=== PATIENT | female | born 1930 | race African-American/Black ===

== ENCOUNTER 2017-03-03 05:51 | Inpatient (IN) | payer MEDICARE, MEDICAID ==
[2017-03-03 07:45] LABS: Troponin I 0.096 ng/mL (< 0.028)
[2017-03-03 08:41] VITALS: BMI 24.1
[2017-03-03] MEDS ORDERED: Nitroglycerin 0.4 MG TAB (25 Tab Bottle) PO PRN (08:54)
[2017-03-03] MEDS ORDERED: Carvedilol 6.25 MG TAB PO SCH ×2 (09:00→21:00)
[2017-03-03] MEDS ORDERED: Nitroglycerin 2% Ointment 1 INCH/1 GM Packet ONE (09:03)
[2017-03-03] MEDS ORDERED: Clopidogrel Bisulfate 300 MG TAB PO SCH (09:15)
[2017-03-03 10:00] LABS: Troponin I 0.091 ng/mL (< 0.028)
[2017-03-03] MEDS ORDERED: Aspirin 81 mg Enteric Coated Tablet PO SCH (13:00)
--- NOTE | 2017-03-03 13:36 | CON ---
DATE OF CONSULTATION: 03/03/2017 REASON FOR CONSULTATION: Stage 6 chronic kidney disease for maintenance hemodialysis. HISTORY OF PRESENT ILLNESS: This is a very pleasant 86-year-old female who was admitted for chest p ain. The patient at this time denies any chest pain, orthopnea or PND. The patient has had some we ight gain and has inoperable coronary artery disease. PAST MEDICAL HISTORY: Diabetes mellitus, congestive heart failure, end-stage renal disease, Thursday , , Thursday; anemia, hyperlipidemia, secondary hyperparathyroidism, AV fistula, coronary ar jesusita disease, diastolic heart failure. SOCIAL ECONOMIC HISTORY: No alcohol or drug use. FAMILY HISTORY: Negative for ESRD. ALLERGIES: Reviewed. REVIEW OF SYSTEMS: A 15-point review of systems was performed and negative except positives noted a hitesh. GENERAL: Weakness- HEAD: Headache- NECK: No swelling or lumps. NOSE: No epistaxis or discharge. EYES: No diplopia or pain. RESPIRATORY: Dyspnea- CARDIOVASCULAR: Chest pain- GASTROINTESTINAL: Nausea- /AN/SYQ 13 NAV/C2 OPERATOR: Hematuria- MUSCULOSKELETAL: No joint pain. NEUROPSYCHIATIC SYSTEMS: No suicidal ideation. No ideation. SKIN: Denies any rash or ulcer. CONSTITUTIONAL: No fever or chills. PHYSICAL EXAMINATION: GENERAL: Patient is awake, alert. VITAL SIGNS: Afebrile, pulse 78, breathing at 16, blood pressure 106/52. GENERAL APPEARANCE AND MENTAL STATUS: Fair. HEAD/NECK: Normocephalic, atraumatic. EYES: EOMI. No deformity. EARS: Clear. No ulcers. NOSE: Intact. No lesions. MOUTH: Clear. No discharge. THROAT: Clear. No exudate. LUNGS: Clear. No crackles. CARDIAC: S1, S2. No rub. ABDOMEN: Benign. BS+. GENITALIA/RECTUM: Villalta absent. BACK/EXTREMITIES: Edema 0+ Ulcer- NEUROLOGICAL: Alert and motor intact. SKIN: Rash- Bruise- LYMPHATICS: Edema- Ulcer- LABORATORY DATA: None today. ASSESSMENT AND RECOMMENDATIONS: 1. Stage 6 chronic kidney disease. We will plan dialysis. 2. Hypertension, stable. 3. Anemia. We will check hemoglobin. 4. Medications based on GFR are appropriate.
[2017-03-03] MEDS ORDERED: Dextrose 50% Abboject 50 ML SYRINGE SLOW IVP PRN (13:51)
[2017-03-03] MEDS ORDERED: Dextrose 5% in Water 1,000 ML IV PRN (13:51)
[2017-03-03] MEDS ORDERED: HumaLOG 300 UNITS/3 ML VIAL SC SCH (17:00)
[2017-03-03] MEDS: HumaLOG 300 UNITS/3 ML VIAL SC SCH (18:40)
[2017-03-03] MEDS ORDERED: Nitroglycerin 2% Ointment 1 INCH/1 GM Packet TOP PRN (19:42)
[2017-03-03] MEDS ORDERED: Sodium Chloride 0.9% 250 ML 250 ML IV SCH (19:45)
[2017-03-03 19:54] LABS: #Eosinphils 0.1 thou/uL (0.0-0.7); #Lymphocytes 1.1 thou/uL (1.20-3.40); #Monocytes 0.8 thou/uL (0.11-0.59); #Neutrophils 6.7 thou/uL (1.40-6.50); %Basophils 0.1 % (0.0-1.0); %Eosinophils 0.6 % (0.0-10.0); %Lymphocytes 12.7 % (21.0-51.0); %Monocytes 9.3 % (0.0-10.0); Hematocrit 31.4 % (36.0-47.0); Mean Platelet Volume 8.7 fL (7.4-10.4); Red Blood Cell (RBC) Count 3.47 mill/uL (4.20-5.40); White Blood Cell (WBC) Count 8.7 thou/uL (4.8-10.8)
[2017-03-03 20:23] LABS: Anion Gap 17 mmol/L (10-20); BUN (Urea Nitrogen) 34 mg/dL (9.8-20.1); Calc. Creatinine Clearance 6 mL/min (70-130); Calcium 9.1 mg/dL (7.8-10.44); Carbon Dioxide 26 mmol/L (23-31); Chloride 99 mmol/L (98-107); Estimated GFR-MDRD 8
[2017-03-03] MEDS ORDERED: Potassium Chloride 20 MEQ TAB PO SCH (20:45)
[2017-03-03 20:55] LABS: Troponin I 0.409 ng/mL (< 0.028)
[2017-03-03] MEDS ORDERED: Carvedilol 3.125 MG TAB PO SCH (21:00)
[2017-03-03] MEDS ORDERED: Furosemide 20 MG/2 ML VIAL SLOW IVP SCH (21:15)
[2017-03-03] MEDS ORDERED: Heparin 25,000 units/D5W 500 ML IVPB SCH (21:15)
[2017-03-03] MEDS ORDERED: Heparin 10,000 UNITS/ 10 ML VIAL SLOW IVP SCH (21:15)
--- NOTE | 2017-03-03 21:15 | RAD ---
PORTABLE AP CHEST X-RAY 03/03/17 HISTORY: Vomiting. Possible aspiration. COMPARISON: 12/09/16 FINDINGS: The cardiac silhouette is magnified by projection but does appear mildly enlarged. There are increas ed interstitial densities throughout the lungs, greater at each lung base with parenchymal density p resent in the retrocardiac region left lung base. There are also suggestion of small bilateral pleur al effusions. Pulmonary vasculature is within normal limits. Vascular calcification seen in the thor acic aorta. There is osteopenia with degenerative change in the spine. . IMPRESSION: 1. Bilateral increased interstitial opacities which could be related to pneumonia. There is gre ater patchy and interstitial densities at the left lung bas. Which could be related to focal area of pneumonia or aspiration pneumonitis. 2. Small bilateral pleural effusions. 3. Mild cardiomegaly. 4. Followup to complete resolution is recommended. POS: POLO
--- NOTE | 2017-03-03 21:16 | HP-2 ---
CODE STATUS: DNR. PRIMARY CARE PHYSICIAN: Dr. Boothe in [place]. ATTENDING: Cindi Whitmore M.D. HISTORIAN: Patient and daughter. SPECIALISTS: Dr. Diaz of Cardiology and Dr. Méndez of Nephrology. CHIEF COMPLAINT: Chest pain. HISTORY OF PRESENT ILLNESS: The patient is an 86-year-old -[place] female with end-stage renal disease, severe coronary artery disease, diastolic CHF, presenting with chest pain to the [place] ED. The patient was found to have a troponin of 0.08 and transferred here for further care. The patient reports that earlier this morning she was lying in bed and was experiencing a squeezing-type chest pain and attempted to use nitro x2 with chest pain persisting. She reports that she uses nitro paste about once a week. Reports no inciting incident or missed medications doses. The patient did have catheterization in 12/2016 showing severe three-vessel disease. At that time, surgery was not recommended as patient was poor surgical candidate and recommended for medical management. ER COURSE: The patient received nitro paste, which resolved chest pain. PAST MEDICAL HISTORY: 1. CHF 2. CAD. 3. End-stage renal disease on hemodialysis Thursday, , and Thursday. 4. Type 2 diabetes on insulin. 5. Anemia of chronic disease. 6. Hypertension. 7. Hyperlipidemia. 8. Secondary hyperparathyroidism. PAST SURGICAL HISTORY: 1. AV fistula in the right forearm. 2. Colonoscopy 2013. ALLERGIES: SULFA AND GLYBURIDE. MEDICATIONS: 1. Lovastatin 40 mg p.o. at bedtime. 2. Ezetimibe 10 mg p.o. daily. 3. Insulin Lispro 6 units subcutaneous b.i.d. with meals. 4. Folic acid, vitamin B complex, x1 tablet oral daily. 5. Calcium carbonate 750 mg p.o. at bedtime. 6. Calcium acetate 667 mg p.o. t.i.d. with meals. 7. Insulin lispro 5 units subcutaneous at bedtime. 8. Aspirin 81 mg p.o. daily. 9. Carvedilol 12.5 mg p.o. b.i.d. 10. Nitroglycerin 0.4 mg sublingual every 5 minutes p.r.n. 11. Hydralazine HCL 50 mg p.o. t.i.d. 12. Amlodipine 10 mg b.i.d. 13. Hydralazine 50 mg p.o. t.i.d. FAMILY HISTORY: Hypertension, hyperlipidemia, diabetes, CHF, end-stage renal disease. SOCIAL HISTORY: The patient is a former smoker, quit at least 10 years ago. Denies alcohol or drug use. Lives with her daughters. REVIEW OF SYSTEMS: General: Denies fevers, endorses fatigue. Eyes: Denies vision changes. Respiratory: Denies cough or congestion. Cardiovascular: Endorses chest pain. Denies edema. Gastrointestinal: Denies nausea, vomiting, or constipation. Musculoskeletal: Denies pain or tenderness. Neuro: Endorses weakness. Denies seizure. PHYSICAL EXAMINATION: VITAL SIGNS: 100/56, pulse 71, respiratory rate 16, T-max 98.6, pulse oximetry 91% on room air, current weight 54 kilograms. GENERAL: Alert and oriented x3, in no acute distress. EYES; however, she does appear acutely ill and somewhat lethargic. EYES: PERRLA, EOMI. NECK: Supple, with no lymphadenopathy. CARDIOVASCULAR: Regular rate and rhythm with no murmurs. Radial and pedal pulses symmetric bilaterally. RESPIRATORY: Normal effort, clear to auscultation bilaterally. ABDOMEN: Soft and nontender to palpation. EXTREMITIES: No cyanosis or edema. MUSCULOSKELETAL: Structure and tone within normal limits. NEUROLOGIC: No focal deficits. Sensation within normal limits. LABORATORY DATA: WBC 8.55, H/H 8.4/21.5, platelets 132,000. Sodium 141, potassium 3.6, chloride 103, bicarbonate 20, BUN 71, creatinine 9.6, glucose 162 , calcium 8.8. Total protein 7, albumin 3.6, total bilirubin 0.4, AST 36, ALT 27. PT 14.4, PTT 32, INR 1.1. Troponin 0.087, BNP 2855. EKG: Incomplete left bundle branch block with ST depressions indicating possible inferolateral ischemia and QTC of 501. ASSESSMENT AND PLAN: This is an 86-year-old female presenting with: 1. Owm-EM-wbbewjh elevation myocardial infarction with history of severe unstable angina, continue to trend cardiac enzymes and repeat EKG. Dr. Diaz consulted from the ER and has seen the patient. We will await his recommendations. The patient is currently on beta-maria r, calcium channel maria r, hydralazine, lovastatin, Zetia, aspirin, possibly consider replacing the patient's p.r.n. nitro with long-acting nitro, admit to telemetry for monitoring. The patient was started on Plavix and aspirin. 2. End-stage renal disease on hemodialysis. Dr. Méndez to be consulted with possible dialysis today, as today is one of her scheduled days. 3. Preserved ejection fraction heart failure. Last echo was in 2015 with an ejection fraction of 60-65%. Elevated BNP here stable with previous hospital visit in December and is likely due to heart failure and end-stage renal disease. No evidence of volume overload seen at this time. 4. Type 2 diabetes on insulin. We will continue with home dosing of Humalog and do Accu-Cheks with mild sliding scale. 5. Hypertension. Continue home medications. She did have low blood pressures due to nitro paste; then we will continue to monitor. 6. Hyperlipidemia. Continue home medications. 7. Prophylaxis. Therapeutic Lovenox, Plavix and aspirin. DISPOSITION AND LENGTH OF HOSPITAL STAY: Inpatient telemetry. Symptomatic medications will be provided. History and physical exam as well as management discussed with Dr. Whitmore. FRANKIE
[2017-03-03 21:45] LABS: Hematocrit 29.1 % (36.0-47.0)
[2017-03-03] MEDS ORDERED: Sterile Water 10 ML ONE (21:55)
[2017-03-04 00:11] LABS: Troponin I 0.596 ng/mL (< 0.028)
[2017-03-04] MEDS ORDERED: Vancomycin HCl 500 MG in Sodium Chloride 0.9% 100 ML IVPB SCH (01:15)
[2017-03-04] MEDS ORDERED: Vancomycin HCl 750 MG in Sodium Chloride 0.9% 250 ML 250 ML IVPB SCH (01:15)
[2017-03-04] MEDS ORDERED: HOLD VANCOMYCIN FOR LEVEL >20 FS SCH (01:15)
[2017-03-04] MEDS ORDERED: Vancomycin HCl 1.25 GM in Sodium Chloride 0.9% 250 ML 250 ML IVPB SCH (01:15)
[2017-03-04] MEDS ORDERED: Vancomycin HCl 1 GM in Premix Bag 1 BAG IVPB SCH ×2 (01:15→01:30)
[2017-03-04] MEDS ORDERED: Ondansetron HCl/PF 8 MG in Sodium Chloride 0.9% 50 ML IVPB SCH (01:45)
[2017-03-04] MEDS ORDERED: Ondansetron HCl/PF 4 MG/2 ML Vial IVP SCH (01:46)
[2017-03-04] MEDS: Piperacillin/Tazobactam 2.25 GM in Sodium Chloride 0.9% 100 ML IVPB SCH ×2 (02:00→15:53)
[2017-03-04 02:55] LABS: Hematocrit 30.6 % (36.0-47.0); Mean Platelet Volume 8.7 fL (7.4-10.4); Red Blood Cell (RBC) Count 3.38 mill/uL (4.20-5.40)
[2017-03-04 03:16] LABS: Anion Gap 22 mmol/L (10-20); BUN (Urea Nitrogen) 41 mg/dL (9.8-20.1); Calc. Creatinine Clearance 5 mL/min (70-130); Calcium 8.8 mg/dL (7.8-10.44); Carbon Dioxide 20 mmol/L (23-31); Chloride 100 mmol/L (98-107); Estimated GFR-MDRD 7
[2017-03-04 03:27] LABS: Troponin I 0.702 ng/mL (< 0.028)
[2017-03-04 06:36] LABS: Troponin I 0.796 ng/mL (< 0.028)
[2017-03-04] MEDS ORDERED: Clopidogrel Bisulfate 75 MG TAB PO SCH (09:00)
[2017-03-04] MEDS ORDERED: Aspirin 81 mg Enteric Coated Tablet PO SCH (09:00)
--- NOTE | 2017-03-04 09:26 | PDOC.FM ---
- Subjective Subjective: Patient had eventful night, began around midnight with hypotensive episode, was given 250ml NS. Was taken off nitro paste. CP/SOB and N/V when she got up to go to bathroom. Was given morphine 2mg. Patient had choking episode witnessed by nurse. Concerns for aspiration PNA so CXR was ordered and CE w/ EKG were done. Trops elevated, EKG was stable from admission/December. Patient also desated so was started on ventimask with improvement. This morning, patient is not experiencing any CP/ SOB, or other symptoms. Breathing on non-rebreather at 15L at 40%. O2% in the low 90%, however when she sits up or speaks, she drops into the low 80s. - Objective MAR Reviewed: Yes Vital Signs & Weight: Vital Signs (12 hours) Temp Pulse Resp BP Pulse Ox 03/04/17 07:20 98.7 F 84 16 103/53 L 100 03/04/17 06:47 81 20 81 L 03/04/17 04:00 98.6 F 73 18 90/46 L 94 L 03/04/17 02:06 72 20 96 03/04/17 02:04 98.3 F 74 30 H 92/49 L 96 03/04/17 00:25 78 18 100/52 L 94 L 03/04/17 00:18 80 24 H 110/56 L 89 L 03/03/17 22:48 94 L 03/03/17 22:28 77 22 H 94 L 03/03/17 22:15 75 20 102/57 L 95 I&O: 03/03/17 03/04/17 03/05/17 06:59 06:59 06:59 Output Total 1000 Balance -1000 Result Diagrams: 03/04/17 02:34 03/04/17 02:34 <Chao Abraham - Last Filed: 03/04/17 11:03> - Objective Vital Signs & Weight: Vital Signs (12 hours) Temp Pulse Pulse Resp BP BP Pulse Ox 03/04/17 10:14 82 20 87 L 03/04/17 07:50 82 95/52 L 03/04/17 07:20 98.7 F 84 16 103/53 L 100 03/04/17 06:47 81 20 81 L 03/04/17 04:00 98.6 F 73 18 90/46 L 94 L 03/04/17 02:06 72 20 96 03/04/17 02:04 98.3 F 74 30 H 92/49 L 96 Pulse Ox Pulse Ox Pulse Ox 03/04/17 10:14 03/04/17 07:50 100 65 L 97 03/04/17 07:20 03/04/17 06:47 03/04/17 04:00 03/04/17 02:06 03/04/17 02:04 I&O: 03/03/17 03/04/17 03/05/17 06:59 06:59 06:59 Output Total 1000 Balance -1000 Result Diagrams: 03/04/17 02:34 03/04/17 02:34 <Cindi Whitmore - Last Filed: 03/04/17 12:44> Phys Exam - Physical Examination Constitutional: NAD HEENT: moist MMs, oral pharynx no lesions rales in RLL Cardiovascular: RRR, no significant murmur Gastrointestinal: soft, non-tender Musculoskeletal: no edema, pulses present Neurological: normal sensation, moves all 4 limbs Psychiatric: normal affect, A&O x 3 <Chao Abraham - Last Filed: 03/04/17 11:03> Dx/Plan (1) NSTEMI (non-ST elevated myocardial infarction) Code(s): I21.4 - NON-ST ELEVATION (NSTEMI) MYOCARDIAL INFARCTION Status: Acute Plan: Dr. Diaz recsherly greatly appreciated. Troponin continues to increase, CK not elevated overnight. Patient asymptomatic overnight. Did not tolerate morphine well overnight as it made her altered. Patient on plavix and aspirin, but not a surgical candidate. Possibly due to fluid overload, however patient had dialysis yesterday and does not appear to be fluid overloaded. Will continue to monitor. (2) Pneumonia, aspiration Code(s): J69.0 - PNEUMONITIS DUE TO INHALATION OF FOOD AND VOMIT Status: Suspected Plan: will continue on zosyn, hold vancomycin at this time. In the room right now, O2 sats are in the 60s by the ear, but finger level is 89%. Will increase FiO2 to 50% per RT. Asymptomatic at this time on ventimask. (3) Diabetes mellitus type 2 with complications Code(s): E11.8 - TYPE 2 DIABETES MELLITUS WITH UNSPECIFIED COMPLICATIONS Status: Acute Plan: home insulin and mild SSI (4) Diastolic CHF Code(s): I50.30 - UNSPECIFIED DIASTOLIC (CONGESTIVE) HEART FAILURE Status: Acute (5) Elevated troponin Code(s): R74.8 - ABNORMAL LEVELS OF OTHER SERUM ENZYMES Status: Acute (6) End stage renal disease on dialysis Code(s): N18.6 - END STAGE RENAL DISEASE; Z99.2 - DEPENDENCE ON RENAL DIALYSIS Status: Acute Plan: Dialysis yesterday with mild hypotension. Will discuss with Dr. Méndez if there is any further intervention. (7) Hypertension Code(s): I10 - ESSENTIAL (PRIMARY) HYPERTENSION Status: Acute <Chao Abraham - Last Filed: 03/04/17 11:03> Attending Addendum - Attending Addendum I personally evaluated the patient and discussed the management with Dr. Abraham I agree with the History, Examination, Assessment and Plan documented above with any addition or exceptions noted below. 86 yo female admitted for ASC HD#1 Afebrile. Hypoxic requiring 50% venti mask. Borderline BP. Denies symptoms currently. Reports no CP or SOB. Briefly discussed prognosis. A/P: Severe 3V dz with progressive ACS: On max therapy. Antianginals relieving pain. Not able to tolerate nitro nor morphine due to BP. Currently on DAPT and Heparin drip. Not a surgical candidate. Prognosis briefly discussed with family. Will follow up with Dr. Castaneda on plan/course of action. Possible hospice evaluation. ESRD: Now with HF and ACS patient not doing well. Will discuss with renal if need for possible repeat HD today if status progresses. Currently on 50% venti mask. Hypoxic respiratory distress: Currently on 50% venti mask. Discussed possible need to transition to positive pressure if patient continues to remain hypoxic. No intubation. Considering hospice. pEFHF: Diastolic dysfunction and now with ASC likely has global hypokinesis. Needs ionotrophic support. Not able to tolerate medications at this time due to BP. Considering hospice. DM: SSI added today. Will stop if decides on hospice. Aspiration PNA: Change antibiotics. Discuss stopping if patient decides on hospice. Awaiting patient's decision on hospice. Corinne <Cindi Whitmore - Last Filed: 03/04/17 12:44>
--- NOTE | 2017-03-04 09:33 | RAD ---
SINGLE VIEW OF THE CHEST: Comparison: 03-03-17 History: Hypoxia. FINDINGS: Single view of the chest shows an enlarged but stable cardiomediastinal silhouette with atherosclero tic calcifications in the aorta. There appear to be small bilateral pleural effusions. Increased int erstitial markings are present. IMPRESSION: Small bilateral pleural effusions. POS: H
[2017-03-04 09:36] LABS: Troponin I 0.801 ng/mL (< 0.028)
[2017-03-04] MEDS: Nitroglycerin 2% Ointment 1 INCH/1 GM Packet TOP SCH ×2 (10:15→20:34)
[2017-03-04] MEDS: HumaLOG 300 UNITS/3 ML VIAL SC SCH ×3 (10:17→16:53)
--- NOTE | 2017-03-04 12:15 | PRG ---
DATE OF SERVICE: 03/04/2017 SUBJECTIVE: This is an 86-year-old female being seen for end-stage renal disease. Overnight, the p atient had a myocardial infarction and hypotension and hypoxia. PHYSICAL EXAMINATION: GENERAL: Patient is resting. VITAL SIGNS: Afebrile, pulse 80, breathing at 16, blood pressure 95/52, in mild to moderate distres s. OBJECTIVE: See above. Awake, alert, in no acute distress. GENERAL APPEARANCE AND MENTAL STATUS: Fair. HEAD/NECK: Normocephalic. Atraumatic. EYES: EOMI. No deformity. EARS: Clear. No ulcers. NOSE: Intact. No lesions. MOUTH: Clear. No discharge. THROAT: Clear. No exudate. LUNGS: Clear. No crackles. CARDIAC: S1, S2. No rub. ABDOMEN: Benign. BS+. GENITALIA/RECTUM: Villalta absent. BACK/EXTREMITIES: Edema 0+ Ulcer- NEUROLOGICAL: Alert and motor intact. SKIN: Rash- Bruise- LYMPHATICS: Edema- Ulcer- LABORATORY: Hemoglobin 9.7. ASSESSMENT AND RECOMMENDATIONS: 1. Stage 6 chronic kidney disease. Risks versus benefits of dialysis were discussed. The family w ants the patient to be on hospice and wants to withdraw dialysis. 2. Anemia, stable. 3. Hypertension, stable. 4. Coronary disease. 5. Congestive heart failure. I will sign off on this patient.
[2017-03-04 15:20] VITALS: TEMP 100.1
--- NOTE | 2017-03-04 17:23 | PDOC.EVN ---
Event Note - Event Note Event Note: I discussed patient's declining status with HUGH Cano and she stated that she wants to honor patient's DNR status, however if patient continues to have decline in respiratory status, they would like BiPAP to be used instead of comfort care. I explained the process of transferring to the ICU and likely sedation as the BiPAP is uncomfortable and many patient's fight the mask. She verbalized she understood and expressed appreciation. Will await for Home Hospice evaluation at 08:30 tomorrow morning.
[2017-03-05] MEDS ORDERED: Morphine Sulfate 2 MG/ML SYRINGE SLOW IVP PRN (00:28)
[2017-03-05] MEDS ORDERED: Scopolamine 1.5 mg/72 hour Patch TD PRN (00:29)
--- NOTE | 2017-03-05 00:39 | PDOC.EVN ---
Event Note - Event Note Event Note: Was called to patients bedside at ~0000 on 03/05/17 to evaluate hypotension and hypoxia. Pts systolic pressure was in the 60s and O2 sat was in the high 80s despite 5L of O2 via NC. At this point treatment goals and options were discussed with the family. It was decided by her POA that we should only provide comfort measures rather than more aggressive treatment. Will dc all orders other than comfort measures. Will add morphine PRN for air hunger and scopolamine for secretions.
[2017-03-05] MEDS ORDERED: Ondansetron HCl/PF 4 MG/2 ML Vial SLOW IVP PRN (02:14)
[2017-03-05 04:07] VITALS: BP 90/50
[2017-03-05] MEDS ORDERED: Lorazepam 2 MG/ML VIAL SLOW IVP PRN (08:32)
--- NOTE | 2017-03-05 09:06 | EKG ---
Test Reason : Blood Pressure : / mmHG Vent. Rate : 083 BPM Atrial Rate : 083 BPM P-R Int : 142 ms QRS Dur : 092 ms QT Int : 404 ms P-R-T Axes : 054 007 247 degrees QTc Int : 474 ms Normal sinus rhythm Prolonged QT Abnormal ECG When compared with ECG of 03-MAR-2017 20:48, (Unconfirmed) No significant change was found Confirmed by PEDRO CHAN ([id number]) on 03/05/2017 9:05:32 AM Referred By: JULISA Confirmed By:PEDRO CHAN
--- NOTE | 2017-03-05 09:06 | EKG ---
Test Reason : Blood Pressure : / mmHG Vent. Rate : 078 BPM Atrial Rate : 078 BPM P-R Int : 134 ms QRS Dur : 096 ms QT Int : 406 ms P-R-T Axes : 058 023 248 degrees QTc Int : 462 ms Normal sinus rhythm Marked ST abnormality, possible lateral subendocardial injury Abnormal ECG When compared with ECG of 03-MAR-2017 09:11, No significant change was found Confirmed by PEDRO CHAN ([id number]) on 03/05/2017 9:05:28 AM Referred By: JULISA Confirmed By:PEDRO CHAN
--- NOTE | 2017-03-05 11:14 | PDOC.FM ---
- Subjective Subjective: Patient continues to be restless overnight. Vital signs mildly worsened overnight, but seem to be stable at this time. Hospice evaluated today and plan is inpatient hospice when bed is available. Until then, she was be admitted to hospice in the hospital admitted under [facility] - Objective MAR Reviewed: Yes Vital Signs & Weight: Vital Signs (12 hours) Pulse Resp BP Pulse Ox 03/05/17 03:26 82 22 H 90/50 L 95 03/05/17 00:10 88 L 03/05/17 00:04 91 28 H 68/40 L 88 L I&O: 03/04/17 03/05/17 03/06/17 06:59 06:59 06:59 Intake Total 84.25 Output Total 1000 Balance -1000 84.25 Result Diagrams: 03/04/17 02:34 03/04/17 02:34 <Chao Abraham - Last Filed: 03/05/17 11:12> - Objective Vital Signs & Weight: Vital Signs (12 hours) Pulse Resp BP Pulse Ox 03/05/17 03:26 82 22 H 90/50 L 95 03/05/17 00:10 88 L 03/05/17 00:04 91 28 H 68/40 L 88 L I&O: 03/04/17 03/05/17 03/06/17 06:59 06:59 06:59 Intake Total 84.25 Output Total 1000 Balance -1000 84.25 Result Diagrams: 03/04/17 02:34 03/04/17 02:34 <Cindi Whitmore - Last Filed: 03/05/17 11:47> Phys Exam - Physical Examination Constitutional: NAD Respiratory: no wheezing, clear to auscultation bilateral on nasal canula Cardiovascular: RRR, no significant murmur Gastrointestinal: soft, non-tender Musculoskeletal: no edema Neurological: moves all 4 limbs Psychiatric: normal affect <Chao Abraham - Last Filed: 03/05/17 11:12> Dx/Plan (1) NSTEMI (non-ST elevated myocardial infarction) Code(s): I21.4 - NON-ST ELEVATION (NSTEMI) MYOCARDIAL INFARCTION Status: Acute Plan: Care has been deescalated and comfort measures only at this time (2) Pneumonia, aspiration Code(s): J69.0 - PNEUMONITIS DUE TO INHALATION OF FOOD AND VOMIT Status: Suspected Plan: comfort measures only at this time (3) Diabetes mellitus type 2 with complications Code(s): E11.8 - TYPE 2 DIABETES MELLITUS WITH UNSPECIFIED COMPLICATIONS Status: Acute Plan: home insulin and mild SSI (4) Diastolic CHF Code(s): I50.30 - UNSPECIFIED DIASTOLIC (CONGESTIVE) HEART FAILURE Status: Acute (5) Elevated troponin Code(s): R74.8 - ABNORMAL LEVELS OF OTHER SERUM ENZYMES Status: Acute (6) End stage renal disease on dialysis Code(s): N18.6 - END STAGE RENAL DISEASE; Z99.2 - DEPENDENCE ON RENAL DIALYSIS Status: Acute Plan: Discussion with family and Dr. Méndez, family decided to stop dialysis and start on hospice (7) Hypertension Code(s): I10 - ESSENTIAL (PRIMARY) HYPERTENSION Status: Acute <Chao Abraham - Last Filed: 03/05/17 11:12> Attending Addendum - Attending Addendum I personally evaluated the patient and discussed the management with Dr. Abraham I agree with the History, Examination, Assessment and Plan documented above with any addition or exceptions noted below. 86 yo female admitted for ASC HD#2 Patient and family members decided to proceed with comfort care. Hospice has evaluated the patient. She is to be transferred to inpatient hospice care today. Corinne <Cindi Whitmore - Last Filed: 03/05/17 11:47>
--- NOTE | 2017-03-05 13:40 | DIS-2 ---
DATE OF ADMISSION: 03/03/2017 DATE OF DISCHARGE: 03/05/2017 DISCHARGE RESIDENT: Chao Abraham DO ADMITTING ATTENDING: Cindi Whitmore MD DISCHARGE ATTENDING: Cindi Whitmore MD CONSULTS: Dr. Diaz of Cardiology and Dr. Méndez of Nephrology. PROCEDURES: 1. Chest x-ray on 03/03/2017, showing bilateral increased interstitial opacities, it could be relat ed to pneumonia. 2. Chest x-ray on 03/04/2017, showing small bilateral pleural effusions, which were similarly seen on comparison of chest x-ray on 03/03/2017 with increased interstitial markings present. PRIMARY DIAGNOSES: 1. Non-ST elevation myocardial infarction. 2. End-stage renal disease, on hemodialysis. 3. 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 4. Severe three-vessel coronary artery disease. SECONDARY DIAGNOSES: 1. Presumed aspiration pneumonia. 2. Hypertension. 3. Type 2 diabetes, on insulin 4. Anemia of chronic disease. 5. Secondary hyperparathyroidism. 6. Cardiorenal syndrome. DISCHARGE MEDICATIONS: The patient was discharged to hospice; therefore, medications were primarily comfort care medications includin. Xanax 0.25 mg p.o. q.6 hours p.r.n. 2. Haldol 5 mg IV push q.6 hours p.r.n. 3. Lorazepam 1 mg p.o. q.4 hours p.r.n. 4. Lorazepam 2 mg p.o. q.4 hours p.r.n. 5. Lorazepam 1 mg IV push q.4 hours p.r.n. 6. Lorazepam 2 mg IV push q.4 hours p.r.n. 7. Magnesium hydroxide 30 mL p.o. daily p.r.n. 8. Morphine sulfate 20 mg sublingual q.2 hours p.r.n. 9. Morphine sulfate IR 15 mg p.o. q.2 hours p.r.n. 10. Zofran 4 mg p.o. q.6 hours p.r.n. 11. Zofran 4 mg IV push q.6 hours p.r.n. 12. Phenergan suppository 25 mg [place] q.6 hours p.r.n. 13. Scopolamine transdermal patch 1.5 mg topical q.3 days p.r.n. 14. Scopolamine transdermal 3 mg topical q.3 days p.r.n. 15. Senokot 2 tablets p.o. daily p.r.n. 16. Ambien 5 mg p.o. at bedtime p.r.n. 17. Benadryl 25 mg IV push q.6 hours p.r.n. 18. Benadryl 25 mg p.o. q.6 hours p.r.n. DISCONTINUED MEDICATIONS: 1. Carvedilol 3.125 mg p.o. b.i.d. 2. Plavix 75 mg p.o. daily. 3. Humalog 6 units q.p.m. 4. Humalog 5 units subcutaneous at 0800 and 1200 hours. 5. Crestor 20 mg p.o. at bedtime. HOSPITAL COURSE: Ms. Harriet Muir is a pleasant 86-year-old female who presented with chest pain. Initial evaluation showed indeterminate troponins. Additionally, the patient has history of severe three-vessel disease which in 12/2016 was determined that patient was a poor surgical candidate and medical management would be done at that time. The patient was also found to have an elevated BNP, which was suspected to be due possibly to the apparent NSTEMI patient had. Additionally, Dr. Tiffani calderón was consulted on the patient and started on Plavix. On day #2 of hospitalization, patient filemon nued to have chest pain overnight with EKG being stable; however, troponins did trend up in to a pos itive range up to 0.8. Additionally, patient's vital signs began to drop into low range with as low as 61. Morphine was given; however, no further intervention was done because patient has DNR statu s. Dr. Méndez had discussions with the patient's family as he has cared for the patient for the past 4-5 years and is familiar with the patient. Discussions determined that the family and patient soug ht palliative/hospice care. Therefore, hospice was consulted and evaluated the patient on day of . Inpatient hospice determined the patient scheduled to be transferred to them as soon as a bed is available; however, in the interim, patient will remain in the hospital with hospital hospice . Regarding the patient's end-stage renal disease, she was scheduled for dialysis on second day of [facility]; therefore, Dr. Méndez was consulted and patient received dialysis, however, in contrast to her visit in December where she did appear to have fluid overload. At this hospitalization, the negrita ent did not seem to have edema or crackles in the lungs; therefore, hemodialysis was not done on day #3 of hospitalization. Additionally, the patient did have hypotension on evening after hemodialysi s; therefore, it appeared the patient was not fluid overloaded. Regarding the patient's possible aspiration pneumonia on evening 2, the patient got up to go to the bathroom and in addition to having chest pain, shortness of breath. She also had an episode of emes is, there was reported choking episode and there were concerns of aspiration pneumonia; therefore, t he patient was started on Zosyn and vancomycin; however, this deescalated soon after based on the cecil fair's history and goals of care as well as her end-stage renal disease. DISPOSITION: Prognosis poor, hospice. DISCHARGE INSTRUCTIONS: 1. Location: Inpatient Hospice. 2. Diet: As tolerated. 3. Activity: As tolerated. 4. Followup: Follow up with hospice physician.
== END 2017-03-05 09:32 | disposition hospice, inpatient (51) | DRG 280 ==
LOC: ERS 05:51 → 2SW 06:58 → OBSVTOIN 09:17 → 2NO 17:15
PROVIDERS: ADMIT Family Medicine; ATTEND Family Medicine
PROC: 5A1D00Z (ICD-10-PCS; principal; 2017-03-03)
DX: I21.4 Non-ST elevation (NSTEMI) myocardial infarction (principal); I50.33 Acute on chronic diastolic (congestive) heart failure; J69.0 Pneumonitis due to inhalation of food and vomit; I95.9 Hypotension, unspecified; N18.6 End stage renal disease; E11.22 Type 2 diabetes mellitus with diabetic chronic kidney disease; N25.81 Secondary hyperparathyroidism of renal origin; D63.8 Anemia in other chronic diseases classified elsewhere; I13.2 Hypertensive heart and chronic kidney disease with heart failure and with stage 5 chronic kidney disease, or end stage renal disease; Z66 Do not resuscitate; Z51.5 Encounter for palliative care; R11.10 Vomiting, unspecified; I25.110 Atherosclerotic heart disease of native coronary artery with unstable angina pectoris; R09.02 Hypoxemia; Z99.2 Dependence on renal dialysis; Z79.4 Long term (current) use of insulin; E78.5 Hyperlipidemia, unspecified
CPT/HCPCS: 36415; 36416; 71010; 80048; 82553; 84484; 85025; 85027; 85730; 87340; 90935; 93005; 93010; 94640; 94760; A4216; G0257; G8987-GO-CL; G8988-GO-CI; J1644; J1940; J2270; J2405; J2543; J2920; J3370; J7050; J7620

== ENCOUNTER 2017-03-05 09:33 | Inpatient (IN) | payer OTHER ==
[2017-03-05] MEDS ORDERED: diphenhydrAMINE HCl 25 MG CAP PO PRN (10:21)
[2017-03-05] MEDS ORDERED: Ondansetron ODT 4 MG TAB PO PRN (10:21)
[2017-03-05] MEDS ORDERED: Lorazepam 1 MG TAB PO PRN ×2 (10:21)
[2017-03-05] MEDS ORDERED: Hyoscyamine Sulfate SL 0.125 mg Tablet SL PRN (10:21)
[2017-03-05] MEDS ORDERED: Milk Of Magnesia 30 ML UDCUP PO PRN (10:21)
[2017-03-05] MEDS ORDERED: Senokot 8.6 MG TAB PO PRN (10:21)
[2017-03-05] MEDS ORDERED: Scopolamine 1.5 mg/72 hour Patch TOP PRN ×2 (10:21)
[2017-03-05] MEDS ORDERED: Haloperidol Lactate 5 MG/ML VIAL SLOW IVP PRN (10:21)
[2017-03-05] MEDS ORDERED: Acetaminophen 325 MG TAB PO PRN (10:21)
[2017-03-05] MEDS ORDERED: Acetaminophen 650 MG Suppository PR PRN (10:21)
[2017-03-05] MEDS ORDERED: Promethazine HCl 25 MG SUPP PR PRN (10:21)
[2017-03-05] MEDS ORDERED: Morphine Sulfate 10 mg/0.5 ml Oral Syringe SL PRN (10:21)
[2017-03-05] MEDS ORDERED: Zolpidem Tartrate 5 MG TAB PO PRN (10:21)
[2017-03-05] MEDS ORDERED: Ondansetron HCl/PF 4 MG/2 ML Vial IVP PRN (10:21)
[2017-03-05] MEDS ORDERED: Loperamide HCl 2 MG CAP PO PRN (10:21)
[2017-03-05] MEDS ORDERED: ALPRAZolam 0.25 MG TAB PO PRN (10:21)
[2017-03-05] MEDS ORDERED: Lorazepam 2 MG/ML VIAL SLOW IVP PRN ×2 (10:21)
[2017-03-05] MEDS ORDERED: diphenhydrAMINE HCl 50 MG/ML 1 ML VIAL IVP PRN (10:21)
[2017-03-05 21:27] VITALS: BP 80/44; TEMP 96.6
--- NOTE | 2017-03-09 01:39 | DIS-2 ---
DATE OF ADMISSION: 03/05/2017 DATE OF DISCHARGE: 03/05/2017 RESIDENT: Chao Abraham D.O. ADMITTING ATTENDING: Dr. Cindi Whitmore. DISCHARGE ATTENDING: Dr. Cindi Whitmore. CONSULTS: None. PROCEDURES: None. PRIMARY DIAGNOSES: 1. [id number] myocardial infarction. 2. End-stage renal disease. 3. Family desires home hospice. SECONDARY DIAGNOSES: 1. Coronary artery disease. 2. Diastolic congestive heart failure. 3. Hypertension. 4. Type 2 diabetes on insulin. 5. Anemia of chronic disease. 6. Secondary hyperparathyroidism. 7. Cardiorenal syndrome. DISCHARGE MEDICATIONS: 1. Zetia 10 mg p.o. at bedtime. 2. Insulin lispro 6 units subcutaneous at bedtime. 3. Insulin lispro 5 units subcutaneous b.i.d. with meals. 4. Aspirin 81 mg p.o. daily. 5. Nitroglycerin 0.4 mg sublingual every 5 minutes as needed. 6. Amlodipine 10 mg p.o. b.i.d. 7. Hydralazine 50 mg p.o. t.i.d. 8. Rosuvastatin 20 mg p.o. daily. 9. Isosorbide mononitrate 60 mg p.o. daily. 10. Carvedilol 12.5 mg p.o. b.i.d. with meals. DISCONTINUED MEDICATIONS: None. HISTORY OF PRESENT ILLNESS AND HOSPITAL COURSE: The patient is an 86-year-old female who earlier in the day was discharged from inpatient hospitalization for NSTEMI. The patient was evaluated early in the morning by inpatient hospice and after discussions with family about the decision between [facility] hospice versus home hospice, it was decided the patient would be most appropriate for [facility]. Therefore, the patient was scheduled to be transferred to inpatient hospice whenever e next hospital bed became available. However, no beds were available at inpatient hospice in the morning of 03/05/2017. Therefore, the patient was admitted in the hospital setting and started on hospice medication protocol. Hemodialysis was not initiated as discussions with Dr. Honey rees that the patient was no longer eligible for dialysis. On the evening of 03/05/2017, the debora larios was able to receive a hospital bed in the inpatient hospice; therefore, she was discharged to [facility] at that time. DISPOSITION: Inpatient hospice. DISCHARGE INSTRUCTIONS: 1. Location: Inpatient hospice. 2. Diet: Regular. 3. Activity: As tolerated. 4. Follow up with home hospice physician.
== END 2017-03-05 22:50 | disposition hospice, inpatient (51) | DRG 280 ==
LOC: 2NO 09:33
PROVIDERS: ADMIT Family Medicine; ATTEND Family Medicine
DX: I21.4 Non-ST elevation (NSTEMI) myocardial infarction (principal); N18.6 End stage renal disease; I13.2 Hypertensive heart and chronic kidney disease with heart failure and with stage 5 chronic kidney disease, or end stage renal disease; E11.9 Type 2 diabetes mellitus without complications; N25.81 Secondary hyperparathyroidism of renal origin; D63.8 Anemia in other chronic diseases classified elsewhere; I50.30 Unspecified diastolic (congestive) heart failure; E78.5 Hyperlipidemia, unspecified; Z79.4 Long term (current) use of insulin; Z88.2 Allergy status to sulfonamides; Z88.8 Allergy status to other drugs, medicaments and biological substances; Z87.891 Personal history of nicotine dependence; Z99.2 Dependence on renal dialysis; Z51.5 Encounter for palliative care